=== PATIENT | female | born 1995 | race Caucasian/White ===

== ENCOUNTER 2018-09-25 10:32 | Emergency (ER) | payer OTHER ==
[2018-09-25 10:37] VITALS: BP 134/79
[2018-09-25] MEDS ORDERED: ETON68IM SQ (10:44)
[2018-09-25] MEDS ORDERED: ONDA8TAB98 PO (10:44)
[2018-09-25] MEDS ORDERED: NS(*) 0.9% 1000 ML BAG 1,000 ML IV ONE (10:48)
--- NOTE | 2018-09-25 10:48 | ER Report ---
History and Physical Time Seen By MD: 10:46 Hx. of Stated Complaint: GENERAL ABD PAIN SINCE THIS AM. WORSE NOW AND LOCALIZED TO RIGHT QUADRANTS HPI/ROS CHIEF COMPLAINT: Right lower quadrant abdominal pain HISTORY OF PRESENT ILLNESS: Patient is a 23-year-old female here with complaints of nausea since 1800 last night, right-sided abdominal pain since 4:00 this morning. Patient was evaluated at urgent care and sent over for evaluation for appendicitis. Patient is afebrile, hemodynamically stable at time of evaluation. Patient is exquisitely tender in the right lower quadrant. Denies prior abdominal surgeries. Took Zofran at urgent care. REVIEW OF SYSTEMS: Constitutional: No fever, no chills. Eyes: No discharge. ENT: No sore throat. Cardiovascular: No chest pain, no palpitations. Respiratory: No cough, no shortness of breath. Gastrointestinal: + RLQ abdominal pain, no vomiting, + nausea. Genitourinary: No hematuria. Musculoskeletal: No back pain. Skin: No rashes. Neurological: No headache. Allergies: Coded Allergies: amoxicillin (Verified Allergy, Intermediate, VOMITTING, 09/25/18) nickel (Verified Allergy, Intermediate, 09/25/18) Home Meds Reported Medications Ondansetron (ONDANSETRON ODT) 8 Mg Tab.rapdis, 8 MG PO Q12H, TAB 09/25/18 Etonogestrel (NEXPLANON) 68 Mg Implant, 68 MG SQ DIRECTED, IMPLANT 09/25/18 Constitutional Vital Sign - Last 24 Hours 09/25/18 10:37 Temp 98.5 Pulse 80 Resp 18 B/P (MAP) 134/79 Pulse Ox 97 O2 Delivery Room Air Physical Exam General Appearance: The patient is alert, has no immediate need for airway protection and no signs of toxicity. Uncomfortable appearing Eyes: Pupils equal and round no pallor or injection. ENT, Mouth: Mucous membranes are moist. Respiratory: There are no retractions, lungs are clear to auscultation. Cardiovascular: Regular rate and rhythm. Gastrointestinal: + Right lower quadrant abdominal tenderness, no rebound or guarding, bowel sounds normal Neurological: No focal neurological deficits Skin: Warm and dry, no rashes. Musculoskeletal: Neck is supple non tender. Extremities are nontender, nonswollen and have full range of motion. DIFFERENTIAL DIAGNOSIS: After history and physical exam differential diagnosis was considered for abdominal pain including but not limited to appendicitis, cholecystitis, gastritis and urinary tract infection. Medical Decision Making Data Points Result Diagram: 09/25/18 1046 09/25/18 1046 Laboratory Hematology Test 09/25/18 10:40 09/25/18 10:46 Urine Color Yellow Urine Clarity Slightly-cloudy Urine pH 7.0 pH (4.8-9.5) Urine Specific [place] 1.017 Urine Protein Negative mg/dL (NEGATIVE) Urine Glucose (UA) Negative mg/dL (NEGATIVE) Urine Ketones Negative mg/dL (NEGATIVE) Urine Blood Negative (NEGATIVE) Urine Nitrite Negative (NEGATIVE) Urine Bilirubin Negative (NEGATIVE) Urine Urobilinogen Negative mg/dL (0.2-1.9) Urine Leukocyte Esterase Negative (NEGATIVE) Urine RBC 1 /HPF (0-2/HPF) Urine WBC <1 /HPF (0-5/HPF) Urine Squamous Epithelial Cells Many /LPF (</=FEW) Urine Bacteria Few /HPF (NONE-FEW) Urine Mucus None /HPF (NONE-FEW) Red Blood Count 4.87 M/uL (4.17-5.56) Mean Corpuscular Volume 91.4 fL (80.0-96.0) Mean Corpuscular Hemoglobin 32.2 pg (26.0-33.0) Mean Corpuscular Hemoglobin Concent 35.2 g/dL (32.0-36.0) Red Cell Distribution Width 13.1 % (11.5-14.5) Mean Platelet Volume 7.9 fL (7.2-11.1) Neutrophils (%) (Auto) 52.8 % (39.4-72.5) Lymphocytes (%) (Auto) 36.9 % (17.6-49.6) Monocytes (%) (Auto) 6.1 % (4.1-12.4) Eosinophils (%) (Auto) 3.7 % (0.4-6.7) Basophils (%) (Auto) 0.5 % (0.3-1.4) Nucleated RBC Relative Count (auto) 0.0 /100WBC Neutrophils # (Auto) 5.0 K/uL (2.0-7.4) Lymphocytes # (Auto) 3.5 K/uL (1.3-3.6) Monocytes # (Auto) 0.6 K/uL (0.3-1.0) Eosinophils # (Auto) 0.3 K/uL (0.0-0.5) Basophils # (Auto) 0.0 K/uL (0.0-0.1) Nucleated RBC Absolute Count (auto) 0.00 K/uL Sodium Level 143 mmol/L (137-145) Potassium Level 3.8 mmol/L (3.5-5.0) Chloride Level 107 mmol/L (98-107) Carbon Dioxide Level 25 mmol/L (22-31) Blood Urea Nitrogen 11 mg/dl (7-18) Creatinine 0.80 mg/dl (0.52-1.04) Glomerular Filtration Rate Calc > 60.0 Random Glucose 92 mg/dl (75-110) Lactate 1.1 mmol/L (0.7-2.1) Calcium Level 9.4 mg/dl (8.4-10.2) Total Bilirubin 0.2 mg/dl (0.2-1.3) Aspartate Amino Transf (AST/SGOT) 27 U/L (0-35) Alanine Aminotransferase (ALT/SGPT) 31 U/L (0-56) Alkaline Phosphatase 86 U/L (0-126) C-Reactive Protein < 0.5 mg/dl (<1.0) Total Protein 7.5 g/dl (6.3-8.2) Albumin 4.4 g/dl (3.5-5.0) Lipase 144 U/L (23-300) Human Chorionic Gonadotropin, Qual Negative (NEGATIVE) Chemistry Test 09/25/18 10:40 09/25/18 10:46 Urine Color Yellow Urine Clarity Slightly-cloudy Urine pH 7.0 pH (4.8-9.5) Urine Specific [place] 1.017 Urine Protein Negative mg/dL (NEGATIVE) Urine Glucose (UA) Negative mg/dL (NEGATIVE) Urine Ketones Negative mg/dL (NEGATIVE) Urine Blood Negative (NEGATIVE) Urine Nitrite Negative (NEGATIVE) Urine Bilirubin Negative (NEGATIVE) Urine Urobilinogen Negative mg/dL (0.2-1.9) Urine Leukocyte Esterase Negative (NEGATIVE) Urine RBC 1 /HPF (0-2/HPF) Urine WBC <1 /HPF (0-5/HPF) Urine Squamous Epithelial Cells Many /LPF (</=FEW) Urine Bacteria Few /HPF (NONE-FEW) Urine Mucus None /HPF (NONE-FEW) White Blood Count 9.4 k/uL (4.5-11.0) Red Blood Count 4.87 M/uL (4.17-5.56) Hemoglobin 15.7 g/dL (12.0-16.0) Hematocrit 44.5 % (34.0-47.0) Mean Corpuscular Volume 91.4 fL (80.0-96.0) Mean Corpuscular Hemoglobin 32.2 pg (26.0-33.0) Mean Corpuscular Hemoglobin Concent 35.2 g/dL (32.0-36.0) Red Cell Distribution Width 13.1 % (11.5-14.5) Platelet Count 361 K/uL (150-450) Mean Platelet Volume 7.9 fL (7.2-11.1) Neutrophils (%) (Auto) 52.8 % (39.4-72.5) Lymphocytes (%) (Auto) 36.9 % (17.6-49.6) Monocytes (%) (Auto) 6.1 % (4.1-12.4) Eosinophils (%) (Auto) 3.7 % (0.4-6.7) Basophils (%) (Auto) 0.5 % (0.3-1.4) Nucleated RBC Relative Count (auto) 0.0 /100WBC Neutrophils # (Auto) 5.0 K/uL (2.0-7.4) Lymphocytes # (Auto) 3.5 K/uL (1.3-3.6) Monocytes # (Auto) 0.6 K/uL (0.3-1.0) Eosinophils # (Auto) 0.3 K/uL (0.0-0.5) Basophils # (Auto) 0.0 K/uL (0.0-0.1) Nucleated RBC Absolute Count (auto) 0.00 K/uL Glomerular Filtration Rate Calc > 60.0 Lactate 1.1 mmol/L (0.7-2.1) Calcium Level 9.4 mg/dl (8.4-10.2) Total Bilirubin 0.2 mg/dl (0.2-1.3) Aspartate Amino Transf (AST/SGOT) 27 U/L (0-35) Alanine Aminotransferase (ALT/SGPT) 31 U/L (0-56) Alkaline Phosphatase 86 U/L (0-126) C-Reactive Protein < 0.5 mg/dl (<1.0) Total Protein 7.5 g/dl (6.3-8.2) Albumin 4.4 g/dl (3.5-5.0) Lipase 144 U/L (23-300) Human Chorionic Gonadotropin, Qual Negative (NEGATIVE) Urinalysis Test 09/25/18 10:40 Urine Color Yellow Urine Clarity Slightly-cloudy Urine pH 7.0 pH (4.8-9.5) Urine Specific [place] 1.017 Urine Protein Negative mg/dL (NEGATIVE) Urine Glucose (UA) Negative mg/dL (NEGATIVE) Urine Ketones Negative mg/dL (NEGATIVE) Urine Blood Negative (NEGATIVE) Urine Nitrite Negative (NEGATIVE) Urine Bilirubin Negative (NEGATIVE) Urine Urobilinogen Negative mg/dL (0.2-1.9) Urine Leukocyte Esterase Negative (NEGATIVE) Urine RBC 1 /HPF (0-2/HPF) Urine WBC <1 /HPF (0-5/HPF) Urine Squamous Epithelial Cells Many /LPF (</=FEW) Urine Bacteria Few /HPF (NONE-FEW) Urine Mucus None /HPF (NONE-FEW) EKG/Imaging Imaging PATIENT NAME: Elisabeth Peña : 1995 MR: [id number] V: [id number] EXAM DATE: ORDERING PHYSICIAN: BALWINDER LUNA TECHNOLOGIST: Location: [facility] Patient: Elisabeth Peña : 1995 Visit/Account:[id number] Date of Sevice: 09/25/2018 CT ABDOMEN PELVIS W/ CON HISTORY: RLQ abd pain TECHNIQUE: Following administration of IV contrast contiguous axial images acquired through the abdomen/pelvis. Coronal and sagittal reformatting also performed.Dose Lowering Technique One of the following dose optimization techniques was utilized in the performance of this exam: Automated exposure control; adjustment of the mA and/or kV according to the patient's size; or use of an iterative reconstruction technique. Specific details can be referenced in the facility's radiology CT exam operational policy. CONTRAST: 75 mL Isovue-370 COMPARISON: None. FINDINGS: Visualized lung bases: Negative. Hepatobiliary: The gallbladder is contracted which may be related to a recent meal as there is a moderate amount of particulate material within the stomach Spleen: Negative. Adrenals: Negative. Pancreas: Negative. Kidneys ureters or bladder: Negative. Genitalia: Negative. GI: The appendix is visualized and does not appear inflamed. There is no evidence of bowel obstruction or bowel wall thickening Vessels/spaces/nodes: Negative. Bones/soft tissues: Negative. Additional findings: None pertinent. IMPRESSION: The gallbladder is contracted which may be related to a recent meal as there is a moderate amount of particulate material within the stomach although clinical correlation needed No evidence of hydronephrosis or urolithiasis ED Course/Re-evaluation ED Course Patient is a 23-year-old female here with complaints of right lower quadrant abdominal pain which started approximately 4:00 this morning, nausea started approximately 1800 last night. Denies prior history of abdominal surgeries. There is no leukocytosis, labs were otherwise unremarkable. Patient was hemodynamically stable throughout course. There is no leukocytosis, CRP was negative, electrolytes were stable, urinalysis showed no sign of infection. CT imaging showed no intra-abdominal process. Appendix was visualized and appears noninflamed. I updated the patient regarding these findings and she was understanding. Patient was hemodynamically stable at time of discharge. PCP follow-up recommended. Decision to Disposition Date: Sep 25, 2018 Decision to Disposition Time: 12:20 Depart Departure Latest Vital Signs Vital Signs Date Time Temp Pulse Resp B/P (MAP) Pulse Ox O2 Delivery O2 Flow Rate FiO2 09/25/18 10:37 98.5 80 18 134/79 97 Room Air Impression: Primary Impression: Abdominal pain Condition: Improved Disposition: HOME OR SELF-CARE New Scripts Ondansetron 4 Mg Odt (ONDANSETRON 4 MG ODT) 4 Mg Tab.rapdis 4 MG PO ONCE, #20 TAB Prov: BALWINDER LUNA DO 09/25/18 Tramadol Hcl (TRAMADOL HCL) 50 Mg Tablet 50 MG PO Q6H PRN for PAIN, #12 TAB 0 Refills Prov: BALWINDER LUNA DO 09/25/18 Patient Instructions: Abdominal Pain (ED) Additional Instructions: Please drink plenty of water. Please take ibuprofen or Tylenol as needed for primary pain control, Zofran as needed for nausea and vomiting, tramadol as needed for breakthrough pain control. Please return promptly if you develop worsening pain, fevers, inability keep down food or fluids. Please follow-up with your family provider in the next 24-48 hours for reevaluation. BALWINDER LUNA DO Sep 25, 2018 10:48
[2018-09-25] MEDS ORDERED: KETOROLAC 30 MG/ML VIAL IVP ONE (10:50)
[2018-09-25] MEDS ORDERED: ONDANSETRON 4 MG/2 ML VIAL IVP ONE (10:50)
[2018-09-25 10:56] LABS: PLATELET COUNT, AUTOMATED 361 K/uL (150-450)
[2018-09-25] MEDS ORDERED: IOPAMIDOL 76% 100 ML INFUS BTL 100 ML ONE (10:59)
--- NOTE | 2018-09-25 12:10 | RADIOLOGY IMAGING REPORT ---
[place] [facility] [place] NAME: Elisabeth Peña : 1995 MR: [id number] V: [id number] EXAM DATE: ORDERING PHYSICIAN: BALWINDER LUNA TECHNOLOGIST: Location: [facility] [place] Patient: Elisabeth Peña : 1995 Visit/Account:[id number] Date of Sevice: 09/25/2018 CT ABDOMEN PELVIS W/ CON HISTORY: RLQ abd pain TECHNIQUE: Following administration of IV contrast contiguous axial images acquired through the abdom en/pelvis. Coronal and sagittal reformatting also performed.Dose Lowering Technique One of the following dose optimization techniques was utilized in the performance of this exam: Autom ated exposure control; adjustment of the mA and/or kV according to the patient's size; or use of an i terative reconstruction technique. Specific details can be referenced in the facility's radiology C T exam operational policy. CONTRAST: 75 mL Isovue-370 COMPARISON: None. FINDINGS: Visualized lung bases: Negative. Hepatobiliary: The gallbladder is contracted which may be related to a recent meal as there is a mod erate amount of particulate material within the stomach Spleen: Negative. Adrenals: Negative. Pancreas: Negative. Kidneys ureters or bladder: Negative. Genitalia: Negative. GI: The appendix is visualized and does not appear inflamed. There is no evidence of bowel obstruct ion or bowel wall thickening Vessels/spaces/nodes: Negative. Bones/soft tissues: Negative. Additional findings: None pertinent. IMPRESSION: The gallbladder is contracted which may be related to a recent meal as there is a moderate amount of particulate material within the stomach although clinical correlation needed No evidence of hydronephrosis or urolithiasis The appendix is visualized and does not appear inflamed Report Dictated By: Melissa Perales MD at 09/25/2018 11:56 AM Report E-Signed By: Melissa Perales MD at 09/25/2018 12:03 PM WSN:[email or web address]
[2018-09-25] MEDS ORDERED: ONDA4TAB9 PO (12:24)
[2018-09-25] MEDS ORDERED: TRAM-420 PO (12:24)
== END 2018-09-25 12:34 | disposition home or self-care (01) ==
LOC: ER 10:51
DX: R10.31 Right lower quadrant pain (principal)
CPT/HCPCS: 74177; 81001; 83605; 83690; 84703; 85025; 86140; 96361; 96374; 99284; J1885; J7030; Q9967; 82040; 82247; 82310; 82374; 82435; 82565; 82947; 84075; 84132; 84155; 84295; 84450; 84460; 84520

== ENCOUNTER → 2018-10-31 | Outpatient (CLI) | payer OTHER ==
[~2018-10-31] MED LIST: ETON68IM SQ; ONDA4TAB9 PO; ONDA8TAB98 PO; TRAM-420 PO
--- NOTE | 2018-10-31 14:24 | RADIOLOGY IMAGING REPORT ---
FACILITY: [facility] - [place] PATIENT NAME: Elisabeth Peña : 1995 MR: [id number] V: [id number] EXAM DATE: ORDERING PHYSICIAN: REFUGIO LEE TECHNOLOGIST: Location: Patient: Elisabeth Peña : 1995 Visit/Account:[id number] Date of Sevice: 10/31/2018 LIVER HISTORY: right upper abdominal pain COMPARISON: CT September 25, 2018 FINDINGS: Gallbladder: Unremarkable; no stones or sludge. Liver: Negative. Common duct: Normal, 2.8 mm diameter. Pancreas: Obscured by bowel gas Right kidney: Right kidney measures 9.6 cm in length with no evidence of hydronephrosis Upper abdominal aorta and IVC: Patent. Ascites: None visualized. IMPRESSION: Pancreas is obscured by bowel gas otherwise unremarkable right upper quadrant ultrasound Report Dictated By: Melissa Perales MD at 10/31/2018 2:07 PM Report E-Signed By: Melissa Perales MD at 10/31/2018 2:15 PM STEPHYN:[email or web address]
== END ==
LOC: US 00:43
PROVIDERS: ATTEND Surgery
DX: R10.9 Unspecified abdominal pain (principal)
CPT/HCPCS: 76705

== ENCOUNTER → 2018-11-20 | Outpatient (CLI) | payer OTHER ==
[~2018-11-20] MED LIST changes: +SINCALIDE 5 MCG VIAL INJ ONE; +WATER FOR INJ,STERILE 20 ML 20 ML ONE
--- NOTE | 2018-11-20 13:25 | RADIOLOGY IMAGING REPORT ---
FACILITY: [facility] PATIENT NAME: Elisabeth Peña : 1995 MR: [id number] V: [id number] EXAM DATE: ORDERING PHYSICIAN: REFUGIO LEE TECHNOLOGIST: Location: [facility] [place] Patient: Elisabeth Peña : 1995 Visit/Account:[id number] Date of Sevice: 11/20/2018 EXAMINATION: Nuclear Medicine HIDA Scan with Kinevac Stimulation 11/20/2018 7:30 AM HISTORY: Nausea. Abdominal pain. TECHNIQUE: 6.3 mCi Tc99m Mebrofenin was injected intravenously. Multiple sequential gamma camera kirstie ges of the abdomen were obtained for 30 minutes. At that time, Kinevac was injected intravenously and an additional 30 minutes of gamma camera imaging data was acquired. A computer-generated region of i nterest was placed around the gallbladder and time-activity curve for the gallbladder was derived. Th e gallbladder ejection fraction was calculated. COMPARISON STUDIES: Ultrasound 10/31/2018 FINDINGS: Liver uptake and excretion: normal Time to appearance: Bile ducts: 4 minutes. Gallbladder: 5-6 minutes. Duodenum: 40 minutes. Duodenal- gastric reflux / extravasation: none Post IV Kinevac: excretion Patient symptoms: Patient had some nausea Ejection fraction = 41 %, (normal range > 35%). IMPRESSION: The patient has some nausea during gallbladder emptying, but study is otherwise normal. Report Dictated By: Ronny Lobato MD at 11/20/2018 1:11 PM Report E-Signed By: Ronny Lobato MD at 11/20/2018 1:17 PM WSN:[email or web address]
== END ==
LOC: NUC 00:42
PROVIDERS: ATTEND Surgery
DX: R10.9 Unspecified abdominal pain (principal)
CPT/HCPCS: 78226; A9537; J2805